=== PATIENT | female | born 1995 | race Hispanic/Latino ===

== ENCOUNTER 2021-07-16 13:28 | Emergency (ER) | payer SELFPAY ==
[~2021-07-16 13:28] MED LIST: Iopamidol-370 76% 500 ML 1 ML ONE
[2021-07-16] MEDS ORDERED: Ondansetron PF 4 MG/2 ML Vial ONE (14:00)
[2021-07-16] MEDS ORDERED: Morphine 4 MG/ML VIAL ONE (14:00)
[2021-07-16 14:05] LABS: #Basophils 0.1 thou/uL (0.0-0.2); #Eosinphils 0.2 thou/uL (0.0-0.7); #Lymphocytes 2.6 thou/uL (1.20-3.40); #Monocytes 0.5 thou/uL (0.11-0.59); #Neutrophils 4.4 thou/uL (1.40-6.50); %Basophils 0.7 % (0.0-1.0); %Eosinophils 2.7 % (0.0-10.0); %Lymphocytes 33.3 % (21.0-51.0); %Monocytes 6.1 % (0.0-10.0); %Neutrophils 57.3 % (42.0-75.0); Hemoglobin 14.2 g/dL (12.0-16.0); Mean Corpuscular HGB CONC 34.2 g/dL (32.0-36.0); Mean Corpuscular Hemoglobin 31.4 pg (27.0-31.0); Mean Corpuscular Volume 91.7 fL (78.0-98.0); Mean Platelet Volume 8.2 fL (7.4-10.4); Platelet Count 329 thou/uL (130-400); RBC Distribution Width 11.9 % (11.5-14.5); Red Blood Cell (RBC) Count 4.54 mill/uL (4.20-5.40); White Blood Cell (WBC) Count 7.8 thou/uL (4.8-10.8)
[2021-07-16 14:25] LABS: ALT (SGPT) 17 U/L (8-55); AST (SGOT) 14 U/L (5-34); Albumin 3.8 g/dL (3.5-5.0); Alkaline Phosphatase 62 U/L (40-110); Anion Gap 13 mmol/L (10-20); BUN (Urea Nitrogen) 15 mg/dL (7.0-18.7); Bilirubin, Total 0.3 mg/dL (0.2-1.2); Calc. Creatinine Clearance 0 mL/min (70-130); Carbon Dioxide 22 mmol/L (22-29); Chloride 108 mmol/L (98-107); Glucose 152 mg/dL (70-105); Potassium 3.6 mmol/L (3.5-5.1); Protein, Total 6.8 g/dL (6.0-8.3); Sodium 139 mmol/L (136-145)
[2021-07-16 14:29] LABS: Bacteria/HPF None Seen HPF (None Seen); Bilirubin Negative (Negative); Blood, Urine 3+ (Negative); Clarity Clear (Clear); Glucose, Urine (Dipstick) Normal (Negative); Ketone, Urine Negative (Negative); Leukocyte Negative Leu/uL (Negative); Nitrite Negative (Negative); Protein, Urine (Dipstick) Negative (Neg-Trace); Renal Epithelial 0-3 HPF (None Seen); Specific Gravity, Urine 1.023 (1.002-1.036); Squamous Epithelial 0-3 HPF (0-3); Urobilinogen Normal mg/dL (Less than 2); WBC/HPF 0-3 HPF (0-3)
[2021-07-16] MEDS ORDERED: Fentanyl 100 MCG/2 ML VIAL ONE ×2 (16:23→16:24)
[2021-07-16] MEDS ORDERED: Tranexamic Acid 1,000 MG in Sodium Chloride 0.9% 250 ML 250 ML IVP SCH (16:45)
[2021-07-16] MEDS ORDERED: Tranexamic Acid 1,000 MG/10 ML VIAL ONE (16:57)
== END 2021-07-16 18:08 | disposition home or self-care (01) ==
LOC: ERS 13:28
DX: N92.0 Excessive and frequent menstruation with regular cycle (principal); N88.8 Other specified noninflammatory disorders of cervix uteri
CPT/HCPCS: 36415; 51701; 74177; 76856; 80053; 81003; 81015; 84702; 85025; 86850; 86900; 86901; 96365; 96375; J2270; J2405; J3010; J7050; Q9967

== ENCOUNTER 2025-07-27 23:00 | Emergency (ER) | payer OTHER, SELFPAY ==
[2025-07-28] MEDS ORDERED: Metoclopramide HCl 10 MG (2 mL) VIAL ONE (00:21)
[2025-07-28] MEDS ORDERED: Acetaminophen 500 MG TAB ONE (00:21)
[2025-07-28] MEDS ORDERED: diphenhydrAMINE 50 MG/ML VIAL ONE (00:21)
[2025-07-28 00:33] LABS: CAUTI Indications for Culture Pelvic or flank pain; Glucose, Urine (Dipstick) Normal (Negative); Leukocyte Negative Leu/uL (Negative); Protein, Urine (Dipstick) Negative (Neg-Trace); RBC/HPF 0-3 HPF (0-3); Specific Gravity, Urine 1.003 (1.002-1.036); WBC/HPF 0-3 HPF (0-3)
[2025-07-28 00:37] LABS: Bacteria/HPF 1+ HPF (None Seen)
[2025-07-28 00:39] LABS: Urine Culture Reflex No No
[2025-07-28 00:52] LABS: #Basophils 0.05 10x3/uL (0.0-0.2); #Eosinophils 0.13 10x3/uL (0.0-0.7); #Monocytes 0.61 10x3/uL (0.11-0.59); #Neutrophils 5.36 10x3/uL (1.40-6.50); %Basophils 0.6 % (0.0-1.0); %Eosinophils 1.6 % (0.0-10.0); %Lymphocytes 25.9 % (21.0-51.0); %Monocytes 7.3 % (0.0-10.0); %Neutrophils 63.9 % (42.0-75.0); Hematocrit 34.9 % (36.0-47.0); Hemoglobin 11.3 g/dL (12.0-16.0); Mean Corpuscular Hemoglobin 29.8 pg (27.0-31.0); Mean Corpuscular Volume 92.1 fL (78.0-98.0); Platelet Count 297 10x3/uL (130-400); Red Blood Cell (RBC) Count 3.79 mill/uL (4.20-5.40); White Blood Cell (WBC) Count 8.38 10x3/uL (4.8-10.8)
[2025-07-28 01:09] LABS: ALT (SGPT) 19 U/L (Less than 34); AST (SGOT) 21 U/L (11-34); Albumin 2.9 g/dL (3.1-4.5); Alkaline Phosphatase 62 U/L (40-110); Anion Gap 10 mmol/L (10-20); BUN (Urea Nitrogen) 10 mg/dL (7.0-18.7); Bilirubin, Total 0.2 mg/dL (0.3-1.2); Calc. Creatinine Clearance 0 mL/min (70-130); Calcium 9.2 mg/dL (7.8-10.44); Carbon Dioxide 23 mmol/L (22-29); Chloride 106 mmol/L (98-107); Globulin 3.4 g/dL (2.4-3.5); Glucose 91 mg/dL (70-105); Lipase 29 U/L (8-78); Magnesium 1.6 mg/dL (1.6-2.6); Potassium 3.5 mmol/L (3.5-5.1); Sodium 135 mmol/L (136-145)
== END 2025-07-28 02:35 | disposition home or self-care (01) ==
LOC: ERS 23:00
DX: O99.352 Diseases of the nervous system complicating pregnancy, second trimester (principal); G43.909 Migraine, unspecified, not intractable, without status migrainosus; O99.891 Other specified diseases and conditions complicating pregnancy; R07.89 Other chest pain; Z3A.14 14 weeks gestation of pregnancy
CPT/HCPCS: 76805; 80053; 81001; 83690; 83735; 83880; 84484; 85025; 85379; 87428; 93005; 96365; 96366; 96375; J1200; J2765

== ENCOUNTER 2025-09-22 14:51 | Outpatient (CLI) | payer OTHER | END 2025-09-22 14:52 | disposition home or self-care (01) | LOC: ULT 14:51 | PROVIDERS: ATTEND Family Medicine | DX: Z34.82 Encounter for supervision of other normal pregnancy, second trimester (principal); Z3A.26 26 weeks gestation of pregnancy | CPT/HCPCS: 76805 ==